=== PATIENT | male | born 1975 | race Caucasian/White ===

== ENCOUNTER 2017-02-14 12:31 | Emergency (ER) | payer OTHER ==
[2017-02-14 12:42] VITALS: BP 165/83
--- NOTE | 2017-02-14 13:32 | RAD ---
INDICATION: Neck pain after fall COMPARISON: None TECHNIQUE: Noncontrast axial source images was performed from the skull base to the thoracic inlet. Coronal and and sagittal reformatted images were generated. FINDINGS: Vertebrae: There is no fracture or acute focal bony lesion. There are minor arthritic changes. There is uncinate process spurring and posterior spondylitic ridge formation from C3 through C6. There is mild multilevel foraminal narrowing. Alignment: The craniocervical junction appears normal. The cervical vertebrae are normally aligned. Central Canal: There are no significant CT abnormalities of the central canal or foramina. MR imaging is a more sensitive method to evaluate the canal and foramina. Intervertebral disc spaces: The disc spaces are maintained. Brain: The visualized brain appears unremarkable. Soft tissues: The visualized soft tissue elements of the neck are unremarkable. The prevertebral soft tissues appear normal. The lung apices are clear. IMPRESSION: MINOR MULTILEVEL OSTEOARTHRITIC CHANGE WITH MILD BILATERAL FORAMINAL NARROWING
--- NOTE | 2017-02-14 13:57 | ED ---
Head Injury - HPI Summary HPI Summary: He states last night he was walking into the house and tripped and fell forward hitting his head but the pain he experienced and his complaint is neck pain. He states he had mild neck pain last night but had more neck pain today. He denies numbness weakness or hand dysfunction. He denies loc or headache. He had been drinking beer last night but denies being inebriated. 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 Character: Dull Aggravating Factor(s): Movement Alleviating Factor(s): Rest Associated Signs And Symptoms: Neck Pain - Allergies/Home Medications Allergies/Adverse Reactions: Allergies Allergy/AdvReac Type Severity Reaction Status Date / Time No Known Allergies Allergy Verified 02/14/17 12:43 PMH/Surg Hx/FS Hx/Imm Hx Endocrine/Hematology History: Denies: Hx Anticoagulant Therapy, Hx Diabetes, Hx Thyroid Disease Cardiovascular History: Denies: Hx Hypertension, Hx Pacemaker/ICD Respiratory History: Reports: Hx Asthma - as child, shanique as adult History: Denies: Hx Renal Disease Musculoskeletal History: Reports: Hx Arthritis - right hip Sensory History: Denies: Hx Contacts or Glasses, Hx Hearing Aid Opthamlomology History: Denies: Hx Contacts or Glasses Psychiatric History: Denies: Hx Panic Disorder - Surgical History Surgery Procedure, Year, and Place: left foot - FX'D [facility]. Lt knee - KNEE [facility]. HERNIA [facility]. L5 laminectomy Hx Anesthesia Reactions: No Infectious Disease History: No Infectious Disease History: Denies: Traveled Outside the [place] in Last 30 Days - Family History Known Family History: Negative: Blood Disorder - Social History Occupation: Employed Full-time Alcohol Use: Occasionally Substance Use Type: Reports: None Smoking Status (MU): Former Smoker Review of Systems All Other Systems Reviewed And Are Negative: Yes Physical Exam Triage Information Reviewed: Yes Vital Signs On Initial Exam: Initial Vitals Temp Pulse Resp BP Pulse Ox 97.8 F 60 14 165/83 100 02/14/17 12:37 02/14/17 12:37 02/14/17 12:37 02/14/17 12:37 02/14/17 12:37 Vital Signs Reviewed: Yes Appearance: Positive: Well-Appearing - He is in c collar. He is alert and appears generally comfortable., No Pain Distress, Well-Nourished. Negative: Ill -Appearing Head/Face: Positive: Normal Head/Face Inspection Eyes: Positive: Normal, EOMI, ANAMARIA, Conjunctiva Clear. Negative: Conjunctiva Inflammed ENT: Positive: Normal ENT inspection Neck: Positive: Supple, Nontender, No Lymphadenopathy Respiratory/Lung Sounds: Positive: Clear to Auscultation, Breath Sounds Present. Negative: Decreased Breath Sounds Cardiovascular: Positive: Normal, RRR, Pulses are Symmetrical in both Upper and Lower Extremities Abdomen Description: Positive: Nontender, No Organomegaly, Soft Musculoskeletal: Positive: Pain @ - through the collar, he has tenderness in the area of c3.. Negative: Edema Left, Edema Right Neurological: Positive: Normal - christiano hand sensation, instructional design manager, thumb extension, finger abduction, and thumb opposition all intact., Sensory/Motor Intact, Alert , Oriented to Person Place, Time, CN Intact II-III Psychiatric: Positive: Normal AVPU Assessment: Alert - Amador Coma Scale Best Eye Response: 4 - Spontaneous Best Motor Response: 6 - Obeys Commands Best Verbal Response: 5 - Oriented Diagnostics - Vital Signs Vital Signs Temp Pulse Resp BP Pulse Ox 02/14/17 12:37 97.8 F 60 14 165/83 100 - Laboratory Lab Statement: Any lab studies that have been ordered have been reviewed, and results considered in the medical decision making process. Head Injury Course/Dx Course Of Treatment: low mechanism of injury. Neuro exam and symptoms intact. Ct normal. no fracture. - Diagnoses Differential Diagnosis/HQI/PQRI: Cerebral Contusion, Cervical Sprain, Concussion With LOC, Concussion Without LOC, Contusion, Hematoma, Intracranial Bleed, Laceration, Mandible Fracture, Nasal Fracture, Orbital Fracture, Skull Fracture, Zygomatic Fracture Provider Diagnoses: Head injury, Neck strain Discharge - Discharge Plan Condition: Good Disposition: HOME Prescriptions: Indomethacin CAP* [Indocin CAP*] 25 mg PO TID PRN #20 cap PRN Reason: Pain Patient Education Materials: Neck Pain (ED), Acute Neck Pain (ED) Forms: *Work Release Referrals: Patric Greene MD [Primary Care Provider] - If Needed
== END 2017-02-14 14:15 | disposition home or self-care (01) ==
LOC: UCCORT 12:31
DX: S09.90XA Unspecified injury of head, initial encounter (principal); S16.1XXA Strain of muscle, fascia and tendon at neck level, initial encounter; W01.10XA Fall on same level from slipping, tripping and stumbling with subsequent striking against unspecified object, initial encounter; Y93.9 Activity, unspecified; Y92.9 Unspecified place or not applicable; M16.11 Unilateral primary osteoarthritis, right hip; Z87.891 Personal history of nicotine dependence
CPT/HCPCS: 72125; 99213; G0463